=== PATIENT | male | born 1965 | race Caucasian/White ===

== ENCOUNTER → 2016-12-09 | Outpatient (CLI) | payer BC ==
[2016-12-09 07:52] LABS: EST GLOMERULAR FILTRATION > 60 (>60 ml/min/1.73m(2))
--- NOTE | 2016-12-09 11:51 | DI ---
MRI CHEST SCAN WITHOUT AND WITH, 12/09/2016 7:38 AM: Clinical History: Right-sided chest wall mass that clinically feels like a lipoma. Previous Exam: None at this facility. Precontrast axial and coronal T1 and T2-weighted and fat-saturated pre-and postcontrast T1-weighted s cans are performed. There is a biconcave fat signal intensity mass in the lateral aspect of the right chest wall. It lies deep to Fanny's fascia and superficial to the serrated is anterior muscle and anterior to the latis simus dorsi muscle. The lesion measures approximately 40 x 12 x 35 mm in AP, transverse, and longitud inal dimensions. On the precontrast scans, there are some curvilinear hypointense markings within the lesion. Following IV contrast, there is marked enhancement of the superficial portion of the capsule . The portion of the lesion that is contiguous with the serratus anterior muscle does not show enhanc ement. The postcontrast scans do show areas of increased signal intensity that traverse from side to side, but these may be artifacts. There are other smaller focal areas within the lesion that may actu ally represent "blushing" of tissue. The limited views of the right kidney are normal. Reading: There is a biconcave fat tissue mass that lies deep to Fanny's fascia and superficial to the serratu s anterior muscle and anterior to the latissimus dorsi muscle in the right chest wall. This lesion me asures 40 x 12 x 35 mm in AP, transverse, and longitudinal measurements. Following IV contrast, there is marked enhancement of the "capsule" of this lesion that is contiguous with the surrounding fat. N o definite enhancement is seen on the deeper surface that is contiguous with the surface anterior mus ronny. There may be small areas of enhancement within the lesion. This lesion is indeterminant to being suspicious for representing a liposarcoma.
== END ==
LOC: MRI 07:29
PROVIDERS: ATTEND Surgery
DX: R22.2 Localized swelling, mass and lump, trunk (principal)
CPT/HCPCS: 36415; 71552; 82565; 84520; A9579

== ENCOUNTER → 2016-12-24 | Day surgery (SDC) | payer BC ==
[~2016-12-24] MED LIST: BUPIVACAINE 0.5% W/ EPI - 10 ML VIAL ONE; HYDROcodone-APAP 5 MG -325 MG TABLET PO PRN; KETAMINE 100 MG/1 ML - 5 ML ONE; KETOROLAC 30 MG/1 ML VIAL ONE; LIDOCAINE HCL 1%/EPI 1:100,000 - 20 ML VIAL ONE; LIDOCAINE MPF 2% - 5 ML (20 MG/1 ML) ONE; LIDOCAINE W/ SODIUM BICARB 0.5 ML SYR ONE; Lactated Ringers 1,000 ML PRIMARY IV ONE; MIDAZOLAM 5 MG/1 ML ONE; REMIFENTANIL 1 MG/1 ML IV ONE; SODIUM BICARBONATE 8.4% - 50 ML VIAL ONE; Sodium Chloride 0.9% vial 10 ML ONE; ePHEDrine Inj 50 MG/ML AMP ONE; fentaNYL Inj 250 MCG/5 ML VIAL ONE
--- NOTE | 2016-12-24 10:26 | GEN.OPNOTE ---
Operative Note Surgery Date: 12/24/16 Preoperative Diagnosis: 4 cm right chest wall mass. Postoperative Diagnosis: Same. Probable lipoma. Procedure: Excision 4 cm right chest wall mass. Surgeon: Chavo Nair MD Anesthesia Provider: Asha Samayoa CRNA Anesthesia Type: General Estimated Blood Loss (mL): 2 Fluids: 1200 mL of crystalloid. 15 mg of IV Toradol at the end of the procedure. Pathology: Specimen sent to pathology. Indications: 4 cm fixed right chest wall mass. MRI performed. Some moderately worrisome signs. Proceed with excisional biopsy. 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 It was below Fanny's fascia. It went down to the chest wall muscles with some interdigitation between the muscle fibers. There is a perforating vessel from the chest wall providing the blood supply. Complications: None. Operative Summary: The patient was taken to the operating suite and placed on the operating table in a supine position. Following adequate general anesthetic the patient was placed in the left lateral decubitus position. The chest wall was prepped and draped in a sterile fashion. A surgical timeout was done. The incision site was infiltrated with 1/2% Marcaine with epinephrine. An incision was made overlying the mass and carried down through the subcutaneous tissue and Fanny' s fascia to the surface. The mass was enucleated down to the muscles. I peeled it off the chest wall muscles with electrocautery taking the fascia. In one area the mass extended through the muscle fibers and was then removed in entirety after the muscle fibers.. A perforating vessel was clamped and divided and ligated with 2-0 Vicryl. Hemostasis was assured. A splash block anesthetic was done with half percent Marcaine with epinephrine. This was allowed to sit in the wound for several minutes and then removed. Fanny's fascia was closed with running 2-0 Vicryl. The deep dermis was closed with running 2-0 Vicryl. The skin was closed with running subcuticular 4-0 Prolene followed by Mastisol, Steri-Strips, and a sterile dressing. The patient tolerated the entire procedure well without complication. He was taken to the recovery room in stable condition. All counts were correct.
[2016-12-24 11:20] VITALS: RESP 14
[2016-12-24 12:17] VITALS: TEMP 97.4
== END ==
LOC: SDSC 08:00
PROVIDERS: ATTEND Surgery
DX: D17.1 Benign lipomatous neoplasm of skin and subcutaneous tissue of trunk (principal)
CPT/HCPCS: 19260; A4216; J1885; J2704; J3010; J2001; J2250; J7120

== ENCOUNTER → 2017-05-20 | Outpatient (CLI) | payer BC ==
--- NOTE | 2017-05-21 11:33 | DI ---
RIGHT HAND, 05/20/2017 2:49 PM: Clinical History: Injury. Previous Exam: None at this facility. 2 views are submitted. There is no acute soft tissue, osseous, or joint abnormality. Reading: Normal right hand exam.
== END ==
LOC: RAD 15:21
PROVIDERS: ATTEND Family Medicine
DX: S69.91XA Unspecified injury of right wrist, hand and finger(s), initial encounter (principal); S60.031A Contusion of right middle finger without damage to nail, initial encounter; W22.8XXA Striking against or struck by other objects, initial encounter; Y93.H2 Activity, gardening and landscaping; Y92.89 Other specified places as the place of occurrence of the external cause
CPT/HCPCS: 73120

== ENCOUNTER 2017-11-22 12:36 | Observation (INO) ==
[2017-11-22] MEDS ORDERED: Sodium Chloride 0.9% 1,000 ML PRIMARY IV ONE (12:57)
[2017-11-22] MEDS ORDERED: NORMAL SALINE 10 ML SYRINGE FLUSH IVP PRN ×2 (12:57→15:28)
--- NOTE | 2017-11-22 13:00 | EKG ---
[address] [address] Measurements Intervals [place] Rate: 84 P: 15 TN: 181 QRS: 54 QRSD: 92 T: 14 QT: 361 QTc: 402 Interpretive Statements SINUS RHYTHM RIGHT VENTRICULAR CONDUCTION DELAY No previous ECG available for comparison Electronically Signed On 11-22-17 17:21:40 MST by Geraldo Cortez [email or web address]
--- NOTE | 2017-11-22 13:05 | PDOC ---
Syncope/Near-Syncope HPI - General Chief Complaint: Syncope / Near-Syncope Stated Complaint: near syncope Date Seen by Provider: 11/22/17 Time Seen by Provider: 12:40 Source: POSITIVE: Patient Exam Limitations: POSITIVE: No limitations Nurse's Notes Reviewed & Considered: Yes - History of Present Illness Initial Comments: The patient is a 52-year-old male who presents to the emergency department with complaints of feeling lightheaded. He states that approximately an hour ago he was sitting at his desk at work talking to a coworker when he states he had sudden onset of feeling lightheaded. He states that he felt flush and had tunnel vision and felt like he was going to black out. He also had some tightness across his chest. His coworker got him a glass of water however he was not feeling any better. His symptoms continued and he subsequently decided to come here to the emergency department. He reports that he still feels somewhat foggy however the tunnel vision has improved. He also reports he still has a slight tightness across his chest. He does report onset of some headache since symptoms started. He denies any double vision, numbness or weakness in his arms or legs. He has not had any recent illness or trauma. He is generally healthy and denies any history of heart problems, hypertension, hyperlipidemia or diabetes. He does not use nicotine and has little or no caffeine use. He does not have any known family history of heart problems. - Patient Home Medications Home Medications: Home Medications NK [NK] 11/22/17 - Patient Allergies Allergies/Adverse Reactions: Allergies 3 Allergy/AdvReac Type Severity Reaction Status Date / Time amoxicillin AdvReac VOMITING Verified 11/22/17 12:52 Past Medical History - heen HEPRACHI History: Denies History Cardiovascular History: Denies History Respiratory History: Snoring Gastrointestinal History: GERD Additional Gastrointestinal History: ESOPHAGEAL STRICTURES/ ABDOMINAL PAIN Genitourinary History: Denies History Endocrine History: Denies History Musculoskeletal History: Denies History Prosthesis or Implant: No Additional Musculoskeletal History: MASS ON RIGHT CHEST WALL Neurological History: Denies History Blood Disorders: Denies History Psychiatric History: Denies History Male Reproductive History: Denies History Cancer History: Denies History In Past Year Been Physically Harmed or Verbally Threatened: No History of MDRO: No Tobacco Use: Never Smoker Alcohol Use: Occasionally Type of alcohol normally used: Hard Liquor In the Past 12 Months, Have Used or Abuse Any Substance: None Previous Surgical History: Yes Type / Date of Surgery: UPPER ENDOSCOPY X 4 WITH DILATIONS/RIGHT INGUINAL HERNIORRAPHY 1984 Anesthesia Reactions: No Malignant Hyperthermia: No Significant Family History: No pertinent family hx Past Medical History Reviewed: Reviewed - No Changes ROS - Limitations ROS Limitations: No Limitations Constitution: DENIES: Chills, Fever Cardiovascular: DENIES: Chest Pain (He denies chest pain however describes some slight tightness across his chest), Heart Racing, Heart Palpitations, Blood Pressure Problem, Edema Respiratory: DENIES: Shortness Of Breath Neurological: REPORTS: Headache (Temples of both sides), Dizziness. DENIES: Numbness, Weakness Gastrointestinal: REPORTS: Denies GI Symptoms Musculoskeletal: REPORTS: Denies MS Symptoms Eyes: REPORTS: Vision Changes (He reported tunnel vision and spots in his vision when he felt like he was going to pass out, this has resolved) ENT: REPORTS: Denies Symptoms Skin: DENIES: Rash Syncope / Near-Syncope Exam - General Appearance General Appearance: POSITIVE: Alert, Cooperative, No Acute Distress - HEENT HEENT: POSITIVE: Head Inspection Nml, Eyes Inspection Nml, Ears Inspection Nml, Pharynx Inspect. Nml, PERRL, EOMI - Neck / Back Neck/Back: POSITIVE: Supple. NEGATIVE: Non-Tender - Respiratory Respiratory: POSITIVE: No Respiratoy Distress, Breath Sounds Normal - Cardiovascular Cardiovascular: POSITIVE: Regular Rate and Rhythm, Heart Sounds Normal Peripheral Pulses: Radial (R): 2+, Radial (L): 2+ - Abdomen Abdomen: Soft: (All Quadrants), Denies Tenderness: (All Quadrants), No Distention: (All Quadrants) - Skin Skin: POSITIVE: Intact, No Rash - Extremities Extremity: Normal ROM: (All Extremities), Normal Inspection: (All Extremities) - Neuro / Psych Higher Functions: POSITIVE: Oriented to Person, Oriented to Place, Oriented to Time Cranial Nerves: POSITIVE: Normal As Tested Sensorimotor: POSITIVE: No Motor Deficits, No Sensory Deficits Syncope/Near-Syncope Progress - Results Reviewed by me Lab Results Reviewed by Me: Yes CBC and BMP: 11/22/17 13:02 11/22/17 13:02 EKG Interpreted/Reviewed By Me:: Yes EKG Interpretation:: POSITIVE: Normal Sinus Rhythm, Normal Rate, Normal QRS, Normal ST/T - Patient's Progress MDM / ED Course: The patient's initial vital signs were unremarkable except that he was slightly hypertensive. His initial EKG shows normal sinus rhythm with no acute ST segment or T-wave changes, no previous EKGs are available for comparison. His bedside blood sugar on arrival was 91. An IV was established and he did receive 1 L bolus of normal saline. His blood work is all unremarkable except for mildly elevated transaminases. These were elevated on previous blood work from 2016. His troponin is normal. His orthostatic vital signs did not show any evidence of orthostatic drop. The patient continued to have complaints of feeling somewhat dizzy and like he had some tunnel vision. His headache resolved without any treatment here. He states that he still did not feel back to normal. Results of current studies were discussed. At this point all of his workup is reassuring however I do not have a good explanation for his symptoms which included the lightheadedness, feeling like he was going to pass out associated with chest tightness. At this point decision was made to admit the patient for further cardiac monitoring and evaluation. This was discussed with the patient and he was in agreement with this plan. Dr. Pierson has agreed to admit the patient. - Consult Counseled: POSITIVE: Patient, RE: Lab Results, RE: DX Patient Care Time - Estimated PCT Patient Care Time (In Minutes): 25 Vital Signs - Recent Vital Signs Vital Signs: Vital Signs (Last 8 hours) Temp Pulse Pulse Pulse Pulse Pulse Resp 11/22/17 12:57 79 95 102 H 11/22/17 12:55 84 11/22/17 12:36 96.8 F 88 18 BP BP BP BP Pulse Ox 11/22/17 12:57 131/85 139/82 133/95 11/22/17 12:55 11/22/17 12:36 153/99 95 - VS Reviewed Vital Signs Reviewed: Yes Discharge Clinical Impression: Near syncope, Chest tightness Discharge Disposition: Admit to Observation Condition: Stable Follow Up With: KEM ENG [Primary Care Provider] -
[2017-11-22 13:23] LABS: BLOOD UREA NITROGEN 15 mg/dL (7-22); BUN/CREATININE RATIO 18.75 (6-20); SERUM ALBUMIN 4.7 g/dL (3.5-4.8)
[2017-11-22 13:25] LABS: BASOPHILS # (AUTO) 0.01 10*3/UL; BASOPHILS % (AUTO) 0.1 % (0-1); EOSINOPHILS # (AUTO) 0.49 10*3/UL; EOSINOPHILS % (AUTO) 7.2 % (0-8); Hematocrit [HCT] 45.3 % (42.0-52.0); Hemoglobin [HGB] 15.9 g/dL (14.0-18.0); LYMPHOCYTES # (AUTO) 1.57 10*3/uL; MEAN CORPUSCULAR HEMOGLOBIN 30.3 PG (27-31); MEAN CORPUSCULAR HGB CONC 35.1 g/dL (33-37); MEAN CORPUSCULAR VOLUME 86.3 FL (80-90); MEAN PLATELET VOLUME 10.5 FL (7.4-12.2); MONOCYTES # (AUTO) 0.57 10*3/UL (0.3-0.8); MONOCYTES % (AUTO) 8.3 % (5-15); NEUTROPHILS # (AUTO) 4.17 10*3/UL; NEUTROPHILS % (AUTO) 61.1 % (50-80); RED BLOOD COUNT 5.25 10^6/uL (4.70-6.10)
[2017-11-22 13:26] LABS: PLATELET MORPHOLOGY COMMENT NORMAL MORPHOLOGY (NORM); RBC MORPHOLOGY COMMENT NORMAL MORPHOLOGY (NORM); WBC MORPHOLOGY COMMENT NORMAL MORPHOLOGY (NORM)
--- NOTE | 2017-11-22 14:57 | PDOC ---
HPI - History of Present Illness Date of Service: 11/22/17 Chief Complaint: chest pain History of Present Illness: This is a very nice 52-year-old gentleman with no past medical history and on no medications. I'll at work sitting at a desk talking to his coworker he had some lightheadedness and felt flushed had some tunnel vision and some chest tightness after a glass of water did not feel any better and decided to be seen in the emergency department. This is the first time this happens. He drinks beer occasionally at night no other risk factors Past Medical History Medical History: None Tobacco Use: Never Smoker In the Past 12 Months, Have Used or Abuse Any of the Following Substance: None Medication / Allergies Home Medications: Home Medications Medication Instructions Recorded Confirmed Type NK [NK] 11/22/17 11/22/17 History Allergies/Adverse Reactions: Allergies 3 Allergy/AdvReac Type Severity Reaction Status Date / Time amoxicillin AdvReac VOMITING Verified 11/22/17 15:29 Review of Systems - Review of Systems All Systems: Reviewed & No Additional Complaints Except as Stated - Constitutional Constitutional: REPORTS: General Health Good - Respiratory Respiratory: DENIES: Negative System Review, Cough, Sputum, Dyspnea At Rest, Dyspnea with Exertion, Pleuritic Pain, Hemoptysis, Wheezing, Other, See HPI - Cardiovascular Cardiovascular: REPORTS: Chest Pain - Gastrointestinal Gastrointestinal / Abdominal: DENIES: Negative System Review, Nausea, Vomiting, Diarrhea, Constipation, Abdominal Pain, Bloody Stool, Poor Appetite, Heartburn, Regurgitation, Bloating, Lactose Intolerance, Melena, Bright Red Blood per Rectum, Other, See HPI - Genitourinary Genitourinary: DENIES: Negative System Review, Pain, Burning, Hematuria, Incontinence, Urgency, Hesitant Stream, Decreased Stream, Nocutria, Discharge, Sexual Dysfunction, Other, See HPI - Neurological Neurologic: DENIES: Negative System Review, Headache, Numbness/Paresthesia, Tremors, Weakness, Seizures, Head Trauma, LOC, Dizziness, Confusion, Memory Loss , Difficulty Walking, Incoordination, Other, See HPI Exam - Vitals Vital Signs: Vital Signs Temperature 96.8 F Temperature Source Temporal Artery Scan Pulse Rate [Pulse Oximeter 88 Right] Pulse Rate [Standing] 102 Pulse Rate [Sitting] 95 Pulse Rate [Lying] 79 Pulse Rate 84 Respiratory Rate 18 Blood Pressure [Standing] 133/95 Blood Pressure [Sitting] 139/82 Blood Pressure [Lying] 131/85 Blood Pressure [Left Arm] 153/99 Pulse Ox 95 Oxygen Delivery Method Room Air Height 5 ft 11 in Weight 210 lb - General General Appearance: No Acute Distress, Cooperative - Head Head Exam: Normal Inspection, Normocephalic, Atraumatic - Eye Eye Exam: POSITIVE: Normal Appearance, PERRL, EOMI, No Scleral Icterus - Neck Neck Exam: Normal Inspection, Full ROM, No Tenderness, No Lymphadenopathy, No Thyromegaly, JVP is not Raised - Respiratory Respiratory Exam: POSITIVE: Clear to Auscultation - Bilaterally, Breathing Non Labored, Normal To Percussion, Normal to Percussion and Palpation - Cardiovascular Cardiovascular Exam: POSITIVE: RRR, No Murmur, No Clicks, No Gallops, No Rubs, PMI Non-Displaced - GI/Abdominal GI/Abdominal Exam: POSITIVE: Normal Bowel Sounds, Non Tender, Non Distended, Soft, No Masses, No Hepatomegaly, No Splenomegaly, No Organomegaly - Extremities Extremities Exam: POSITIVE: Normal Inspection, Full ROM, Normal Capillary Refill , No Clubbing Present, No Edema Present, No Cyanosis Present, Negative Vargas's sign, Dosalis Pedis Pulses - Stong & Regular - Neurological Neurological Exam: POSITIVE: Alert, Oriented x 3, Reflexes Normal, Normal Gait, CN II-XII Intact, No Facial Droop, Speech Intact / Clear, Moves All Extremities Equally, No Fasciculations, No Clonus Results - Labs CBC and BMP: 11/22/17 13:02 11/22/17 13:02 Assessment and Plan - Patient Problems (1) Chest tightness Current Visit: Yes Status: Acute Comment: We will rule out coronary artery disease with troponins every 6 check his thyroid in a.m. lipid panel will order chemical stress test well tall the emergency room physician that the patient will be admitted under observation and will take at least 48 hours to perform a chemical stress test he said he would relay this to the patient. Because of his lightheadedness we might do carotid ultrasound as well Code(s): R07.89 - Other chest pain
[2017-11-22] MEDS ORDERED: LIDOCAINE W/ SODIUM BICARB 0.5 ML SYR SUBD PRN (15:28)
[2017-11-22] MEDS ORDERED: ASPIRIN 81 MG (BABY) CHEWABLE TABLET PO ONE (15:28)
[2017-11-22] MEDS ORDERED: CALCIUM CARBONATE 500 MG (TUMS) CHEWABLE TABLET PO PRN (15:28)
[2017-11-23 04:58] LABS: BLOOD UREA NITROGEN 15 mg/dL (7-22); BUN/CREATININE RATIO 18.75 (6-20); CHOL/HDL RATIO 3.83 RATIO (0-4.0); SERUM ALBUMIN 4.1 g/dL (3.5-4.8); SERUM CHOLESTEROL 184 mg/dL (120-200)
--- NOTE | 2017-11-23 12:33 | PDOC(PROG) ---
Interval History: Patient is feeling much better no chest pain feels relaxed most likely this might be secondary to stress Objective : Data - Labs CBC and BMP: 11/22/17 13:02 11/23/17 04:18 Objective : Exam - General General Appearance: No Acute Distress, Cooperative - Respiratory Respiratory Exam: Clear to Auscultation - Bilaterally, Breathing Non Labored, Normal To Percussion, Normal to Percussion and Palpation - Cardiovascular Cardiovascular Exam: RRR, No Murmur, No Clicks, No Gallops, No Rubs, PMI Non- Displaced Assessment and Plan - Patient Problems (1) Chest tightness Current Visit: Yes Status: Acute Comment: Resolved troponins negative 3 Lexiscan stress test in progress this is all scheduled by radiology department for timing and length of testing I let the patient know also carotid ultrasound results are pending I do not see them in the computer yet Code(s): R07.89 - Other chest pain
--- NOTE | 2017-11-23 13:13 | DI ---
DUPLEX COLOR DOPPLER CAROTID ULTRASOUND, 11/22/2017 4:13 PM: Clinical History: Lightheadedness. Flushing. Previous Exam: None at this facility. Technique: 2D real time imaging is supplemented with duplex color doppler ultrasound imaging. RIGHT CAROTID ARTERY: 2D real time imaging of the right carotid system shows minimal intimal thickening of the common carot id artery and the carotid bulb. Small calcified plaques are also present in the carotid bulb with no significant plaque disease seen in the internal or external carotid artery. Peak systolic velocities through the right common carotid, the external carotid, and the internal carotid are 156 cm/s, 135 cm /s, and 111 cm/s, respectively. The values for the common carotid artery and the external carotid art jag correspond to diameter stenoses of 50-74% and the value for the internal carotid artery correspon ds to a diameter stenosis of 0-49%. LEFT CAROTID ARTERY: 2D real time imaging of the left carotid system shows minimal intimal thickening in the common caroti d artery. Small calcified plaques are present in the carotid bulb. No significant plaque disease is s een in the internal or external carotid arteries. Peak systolic velocities through the left common ca rotid, the external carotid, and the internal carotid are 120 cm/s, 86 cm/s, and 83 cm/s, respectivel y. All values correspond to diameter stenoses of 0-49%. VERTEBRAL ARTERIES: There is antegrade flow through both vertebral arteries Cardiac rhythm is regular. Peak systolic [place] through the visualized portions of the right and left vertebral arteries are 20 cm/s and 62 cm /s, respectively. Both values correspond to diameter stenoses of 0-49%. Readin. There is no hemodynamically significant stenosis of either carotid system. 2. There is antegrade flow through both vertebral arteries. Cardiac rhythm is regular.
[2017-11-24 09:08] VITALS: RESP 20
--- NOTE | 2017-11-24 11:03 | DCSUMMARY ---
Hospitalization Summary Hospital Course: Final Discharge Diagnosis: Current Visit Problems Problem Status Onset Code Near syncope Acute R55 Chest tightness Acute R07.89 Diagnostic Data, Laboratory Data, and Procedures of Signifigance: Bilateral carotid ox sound showed no significant abnormality History and Physical pertinent to Admission: Course of Hospitalization: Is a very nice 52-year-old gentleman with no past medical history comes in no with the symptoms of chest pain that resolved after he was admitted troponins and rule out to be negative Lexiscan stress test that was done this morning. Patient is back to his baseline I believe this is all stress related and he tends to agree. If stress test was negative he will be discharged home and follow-up with primary care physician and an talk about stress reduction modalities also he was given 2 g of magnesium and he was given 1 mg of Ativan for anxiety which worked very well patient said the he felt very calm his heart rate came down into the 90s. He was in the 100 range sinus he will follow-up with spine care physician as stated above on November 29 date of discharge, the patient was examined: Gen.: No acute distress, alert, nontoxic Heart: Regular rate and rhythm, no murmurs, clicks, gallops, or rubs Lungs: Clear to auscultation bilaterally, breathing is nonlabored Abdomen/GI: Normal tones on auscultation, soft, nontender, nondistended Musculoskeletal/extremities: No clubbing, cyanosis, or edema Vitals reviewed and are listed below Assessment and Plan: 1. As per discharge assessments above 2. Disposition: Home 3. Condition on discharge, stable and improved. 4. Diet: regular diet 5. Activities: resume normal activities 6. Follow-Up: 1. PCP 2. Dr. Larry 7. Medications at the Time of Discharge: None 8. Time, care, counseling and coordination of care for this discharge is greater than 30 minutes. Counseled about stress reduction strategies and good sleep hygiene most of the stresses related to his work he states Exam - Vitals Vital Signs: Vital Signs Temperature 97.2 F Temperature Source Temporal Artery Scan Pulse Rate [Pulse Oximeter 73 Right] Pulse Rate 73 Respiratory Rate 20 Blood Pressure [Left Arm] 138/87 Pulse Ox 93 Oxygen Delivery Method Room Air Height 5 ft 11 in Weight 216 lb 3.2 oz Patient Problems - Patient Problem List (1) Chest tightness Current Visit: Yes Status: Acute Code(s): R07.89 - Other chest pain Category: Medical
--- NOTE | 2017-11-24 11:41 | STRESSTEST ---
[facility] Interpretive Statements 52 yo male with neg trops,and no risk factors other than stress.no acute changes on stress will await pictures [email or web address]
--- NOTE | 2017-11-24 14:49 | DI ---
2 DAY LEXISCAN STRESS & REST MYOCARDIAL PERFUSION SCANS, 11/23/2017-11/24/2017: Clinical History: Chest pain. Previous Exam: None at this facility. Monitoring Physician: Dr. Mayur Pierson. Dose: Stress dose: 36 mCi on 11/24/2017. Rest dose: 35 mCi on 11/23/2017. Quantitative Analysis: The [employer] [place] program with low dose limited CT chest scan attenuation correctio n. Exam Quality: Excellent. Rejected Beats: Stress = 0%; Rest = 0%. HR: Stress = 91-99 b/m; Rest = 80-8 8 b/m. Left ventricular chamber sizes are normal at stress and rest. Transient ischemic dilatation ratio is 1.02 (normal Papi TID <= 1.22; normal Lexiscan TID <= 1.33). Stress LVEF: 91%; rest LVEF: 90%. Stres s and rest myocardial perfusion, wall motion, and thickening are normal. Limited CT scans of the hear t show no coronary artery calcifications. There are no lung nodules or enlarged nodes. Analysis of th e raw data on the resting scans show that there is a small focus of activity located anteriorly on th e left side of the neck. This is potentially in the location of the thyroid gland. The myocardial per fusion agent is also the same agent used for parathyroid imaging. Correlation with the patient's bloo d work is recommended. Readin. Normal stress and rest left ventricular chamber size. Transient ischemic dilatation ratio is norm al at 1.02. 2. Normal stress and rest LVEF values of 91%, and 90%, respectively. 3. Normal stress and rest myocardial perfusion, wall motion, and thickening. 4. The low dose stress and rest CT scans of the chest through the region of the heart show no coron veronique calcifications. There are no pulmonary nodules or masses. There is no mediastinal or hilar adenop athy. 5. There is a small focus of activity in the region of the anterior aspect of the left side of the n jayme. The Cardiolite agent is the same imaging agent that is used for evaluation of parathyroid adenom as. Correlation with blood work is recommended for assessment of hyperparathyroidism.
[2017-11-24] MEDS ORDERED: LORazepam 2 MG/1 ML VIAL IVP ONE (15:20)
[2017-11-24] MEDS ORDERED: Magnesium Sulfate 2gm (Premix) 2 GM/50 ML BAG IV ONE (16:34)
[2017-11-24 16:41] VITALS: BP 120/78; TEMP 98.4; O2SAT 92
== END 2017-11-24 19:44 | disposition home or self-care (01) ==
LOC: MED/SURG 12:36 → ER 12:36
PROVIDERS: ADMIT Internal Medicine; ATTEND Internal Medicine